=== PATIENT | female | born 1995 | race Caucasian/White ===

== ENCOUNTER 2019-04-07 12:25 | Emergency (ER) | payer OTHER ==
[2019-04-07] MEDS ORDERED: Ondansetron PF 4 MG/2 ML Vial ONE (13:02)
[2019-04-07 13:09] LABS: #Eosinphils 0.1 thou/uL (0.0-0.7); #Lymphocytes 0.9 thou/uL (1.20-3.40); #Monocytes 0.3 thou/uL (0.11-0.59); #Neutrophils 3.6 thou/uL (1.40-6.50); %Basophils 0.4 % (0.0-1.0); %Eosinophils 1.3 % (0.0-10.0); %Lymphocytes 18.7 % (21.0-51.0); %Monocytes 5.6 % (0.0-10.0); Hemoglobin 13.3 g/dL (12.0-16.0); Mean Corpuscular HGB CONC 35.5 g/dL (32.0-36.0); Mean Corpuscular Hemoglobin 31.6 pg (27.0-31.0); Mean Corpuscular Volume 89.2 fL (78.0-98.0); Platelet Count 156 thou/uL (130-400); RBC Distribution Width 11.8 % (11.5-14.5); Red Blood Cell (RBC) Count 4.21 mill/uL (4.20-5.40); White Blood Cell (WBC) Count 4.9 thou/uL (4.8-10.8)
[2019-04-07 13:41] LABS: ALT (SGPT) 13 U/L (8-55); AST (SGOT) 13 U/L (5-34); Albumin 4.1 g/dL (3.5-5.0); Alkaline Phosphatase 39 U/L (40-110); Anion Gap 12 mmol/L (10-20); BUN (Urea Nitrogen) 8 mg/dL (7.0-18.7); Bilirubin, Total 0.5 mg/dL (0.2-1.2); Calc. Creatinine Clearance 0 mL/min (70-130); Calcium 8.8 mg/dL (7.8-10.44); Carbon Dioxide 21 mmol/L (22-29); Chloride 106 mmol/L (98-107); Estimated GFR-MDRD Greater than 90; Globulin 2.8 g/dL (2.4-3.5); Glucose 84 mg/dL (70-105); Potassium 3.7 mmol/L (3.5-5.1); Protein, Total 6.9 g/dL (6.0-8.3); Sodium 135 mmol/L (136-145)
[2019-04-07 14:35] LABS: Bacteria/HPF None Seen HPF (None Seen); Bilirubin Negative (Negative); Blood, Urine 2+ (Negative); Clarity Clear (Clear); Glucose, Urine (Dipstick) Normal (Negative); Leukocyte Negative Leu/uL (Negative); Nitrite Negative (Negative); Protein, Urine (Dipstick) 10 mg/dL (Neg-Trace); RBC/HPF 0-3 HPF (0-3); Squamous Epithelial 0-3 HPF (0-3); Urobilinogen Normal mg/dL (Less than 2); WBC/HPF 0-3 HPF (0-3)
== END 2019-04-07 15:20 | disposition home or self-care (01) ==
LOC: ERS 12:25
DX: O99.89 Other specified diseases and conditions complicating pregnancy, childbirth and the puerperium (principal); R19.7 Diarrhea, unspecified; R10.9 Unspecified abdominal pain; R11.0 Nausea; Z3A.14 14 weeks gestation of pregnancy
CPT/HCPCS: 80053; 81003; 81015; 84443; 85025; 85652; 96361; 96374; J2405

== ENCOUNTER 2019-07-23 16:18 | Day surgery (SDC) | payer OTHER, MEDICAID ==
[2019-07-23 16:54] VITALS: BMI 33.1
[2019-07-23] MEDS ORDERED: hydrALAZINE 20 MG/ML VIAL SLOW IVP PRN (17:33)
[2019-07-23 17:36] VITALS: BP 112/62; TEMP 98.9
--- NOTE | 2019-07-23 17:36 | PDOC.LDHP ---
Labor and Delivery H&P Chief complaint: decreased movement HPI: 23 y/o at 29w2d, patient of Dr. kAers, presents for decreased FM of her di/di twins. Also has noted feeling wet for 3 days but has not had a large gush of fluid. Denies VB, ctx, or other concerns. ROS neg for HEENT, CV, pulm, GI, , neuro, psych, skin, musculoskeletal, or constitutional symptoms other than mentioned above. OB History Details: 1 prior term Past Medical History: None Previous surgical history: none Allergies/Adverse Reactions: Allergies Allergy/AdvReac Type Severity Reaction Status Date / Time No Known Allergies Allergy Unverified 07/23/19 16:44 Social history: none - Physical Exam Vital signs reviewed and normal: yes General: NAD, resting Lungs: nonlabored breathing Abdomen: gravid Extremeties: no edema FHT: category 1 (150s/140s, mod variability, + accels, no decels) [place] contractions every: None - Assessment 23 y/o at 29w2d with reactive NST. No e/o SROM with negative amnisure, pooling and valsalva. - Plan -: D/c home with precautions. Advised to keep all appointments.
[2019-07-23 17:49] LABS: Amnisure Internal Control QC ACCEPTABLE (ACCEPTABLE); Amnisure Test No Membranes Rupture (No Rupture)
== END 2019-07-23 18:40 | disposition home health service (06) ==
LOC: L&D/OP 16:18
PROVIDERS: ATTEND Obstetrics & Gynecology
DX: O36.8130 Decreased fetal movements, third trimester, not applicable or unspecified (principal); O30.043 Twin pregnancy, dichorionic/diamniotic, third trimester; Z3A.29 29 weeks gestation of pregnancy
CPT/HCPCS: 84112; 87480; 87510; 87660; 99284

== ENCOUNTER 2019-09-12 16:58 | Day surgery (SDC) | payer OTHER ==
[2019-09-12 17:34] VITALS: BMI 35.6
[2019-09-12 17:42] VITALS: BP 135/81; TEMP 99.4
[2019-09-12] MEDS ORDERED: hydrALAZINE 20 MG/ML VIAL SLOW IVP PRN (18:00)
[2019-09-12 18:32] LABS: Amnisure Test No Membranes Rupture (No Rupture)
--- NOTE | 2019-09-12 18:32 | PDOC.LDHP ---
Labor and Delivery H&P Chief complaint: loss of fluid HPI: 24yo @ 36.4 with Di-Di twins who is patient of Dr. Akers presents to L& D with complaint of loss of fluid. Pt states that at 1430 today she was walking and felt gush of clear fluid. Since then has been noticing trickling of clear fluid. Around 1600 started to experience what felt like contractions occuring q10 minutes that she describes as diffuse abdominal tightening. Denies vaginal bleeding/discharge, decreased FM, URIAS, vision changes, SOB, CP, cough. Patient is scheduled for on 09/21 due to breech presentation of baby A. Current gestational age (weeks): 36 (4) Due date: 10/06/19 Dating criteria: last menstrual period, first trimester ultrasound Grav: 2 Para: 1 OB History Details: Prev delivery via Current complications: di/di twins, breech (twin A) Abnormal US findings: No (Most recent hadlocks of 15% and 49% reported on 09/08) Past Medical History: None Current medications: pre- vitamins Previous surgical history: none Allergies/Adverse Reactions: Allergies Allergy/AdvReac Type Severity Reaction Status Date / Time No Known Allergies Allergy Unverified 09/12/19 17:32 Social history: none - Physical Exam Vital signs reviewed and normal: yes General: NAD Heart: RRR Lungs: nonlabored breathing Abdomen: gravid FHT: category 1 (Twin A - cat 1 with accels present, baseline near 155) Ixl contractions every: No visible contractions on toco - Vaginal Exam cm dilated: 1 Effacement: 50% Station: -3 - OB Labs Blood type: A RH: positive Antibody Screen: negative HIV: negative RPR: negative HEPSAg: negative 1 hour GCT: positive (failed 1hr but passed all home glucose monitoring WNL) GBS: negative (pt reported per portal results) Rubella: immune - Assessment 24yo di-di twin gestation presenting for concern for LOF. By our exam there is no evidence of SROM - negative amnisure, no pooling or vasalva on exam. Not in labor based on lack of contractions on toco and SVE. Bedside US showed at least 2 pockets of fluid >2cm. - Plan -: DC home with precautions and follow up with provider as currently scheduled. David Bailey DO - PGY2 Addendum - Attending - Attending Attestation Date/Time: 09/15/19 0704 I personally evaluated the patient and discussed the management with Dr. Bailey I agree with the History, Examination, Assessment and Plan documented above with any addition or exceptions noted below.
[2019-09-12 18:33] LABS: Amnisure Internal Control QC ACCEPTABLE (ACCEPTABLE)
== END 2019-09-12 19:06 | disposition home health service (06) ==
LOC: L&D/OP 16:58
PROVIDERS: ATTEND Obstetrics & Gynecology
DX: O99.89 Other specified diseases and conditions complicating pregnancy, childbirth and the puerperium (principal); N89.8 Other specified noninflammatory disorders of vagina; O30.043 Twin pregnancy, dichorionic/diamniotic, third trimester; Z3A.36 36 weeks gestation of pregnancy
CPT/HCPCS: 84112; 87480; 87510; 87660; 99284

== ENCOUNTER 2019-09-19 14:40 | Outpatient (CLI) | payer OTHER ==
[2019-09-20 14:45] LABS: SARS-CoV-2 MS2 Positive; SARS-CoV-2 N Gene Negative; SARS-CoV-2 S Gene Negative; SARS-CoV-2 by NAA Not Detected (NotDetected); SARS-CoV-2 orf1ab Negative
== END 2019-09-19 14:41 | disposition home or self-care (01) ==
LOC: SCSLAB 14:40
PROVIDERS: ATTEND Obstetrics & Gynecology
DX: Z01.812 Encounter for preprocedural laboratory examination (principal); Z11.59 Encounter for screening for other viral diseases
CPT/HCPCS: 87635; U0003

== ENCOUNTER 2019-09-22 06:00 | Inpatient (IN) | payer OTHER ==
[~2019-09-22 06:00] MED LIST: Bicitra 30 ML UDCUP PO SCH; CEFAZOLIN 2 GM in Premix Bag 1 BAG IVPB SCH; Lactated Ringer's 1,000 ML IV SCH; Ondansetron PF 4 MG/2 ML Vial IVP PRN; Promethazine HCl 25 MG/ML VIAL IM PRN; hydrALAZINE 20 MG/ML VIAL SLOW IVP PRN
[2019-09-22 06:09] VITALS: BMI 35.6
[2019-09-22 06:25] LABS: Hemoglobin 10.5 g/dL (12.0-16.0); Mean Corpuscular HGB CONC 33.9 g/dL (32.0-36.0); Mean Corpuscular Hemoglobin 27.5 pg (27.0-31.0); Mean Platelet Volume 9.4 fL (7.4-10.4); Platelet Count 195 thou/uL (130-400); Red Blood Cell (RBC) Count 3.82 mill/uL (4.20-5.40); White Blood Cell (WBC) Count 13.7 thou/uL (4.8-10.8)
[2019-09-22] MEDS ORDERED: Magnesium Sulfate 20 gm/500 ml 0 GM/0 ML BAG ONE (06:49)
[2019-09-22] MEDS ORDERED: Ondansetron PF 4 MG/2 ML Vial ONE ×2 (06:59→08:30)
[2019-09-22] MEDS ORDERED: Oxytocin 10 UNITS/ML VIAL ONE (06:59)
[2019-09-22] MEDS ORDERED: EPHEDRINE 25 MG/5 ML SYRINGE ONE (06:59)
[2019-09-22] MEDS ORDERED: Dexamethasone 4 mg/ml Vial ONE (06:59)
[2019-09-22] MEDS ORDERED: MORPHINE 5 MG/10 ML PF VIAL ONE (06:59)
[2019-09-22] MEDS ORDERED: PHENYLEPHRINE-NS 100 MCG/ML 10 ML SYRINGE ONE (06:59)
[2019-09-22 07:05] LABS: Syphilis Antibody Nonreactive (Nonreactive); Syphilis Antibody Index 0.04 S/CO (<1.00 Non-Reactive)
[2019-09-22 07:06] LABS: HBSAg Index 0.19 S/CO (0-0.99); Hep B Surf Ag Non-Reactive S/CO (NonReactive)
--- NOTE | 2019-09-22 08:14 | PDOC.OPDEL ---
OB Operative/Delivery Note Delivery Dr/Surgeon: Oswald Assist: Adore Pre-Delivery Diagnosis: scheduled section (for di/di twins w breech baby A) Procedure/Post Delivery Dx: primary low transverse CS Weeks gestation: 38 Anesthesia: spinal - Findings A Sex: female B Sex: female - Additional Findings/Plan Placenta delivered: spontaneous findings: low transverse hysterotomy without extension, normal uterus, normal tubes, normal ovaries Estimated blood loss: 500ml Compilations/Other Findings: baby A delivered from complete breech presentation baby B delivered from VTX Post delivery plan: routine recovery
[2019-09-22] MEDS ORDERED: Meperidine HCl/PF 25 MG/ML VIAL SLOW IVP PRN (08:16)
[2019-09-22] MEDS ORDERED: HYDROmorphone 2 MG/ML VIAL SLOW IVP PRN (08:16)
[2019-09-22] MEDS ORDERED: Ondansetron HCl/PF 4 MG/2 ML Vial IVP PRN (08:16)
[2019-09-22] MEDS ORDERED: Promethazine HCl 25 MG/ML VIAL IM PRN ×3 (08:16→12:50)
[2019-09-22] MEDS ORDERED: L&D-Morphine 4 MG/ML VIAL SLOW IVP PRN (08:16)
[2019-09-22] MEDS ORDERED: Ondansetron PF 4 MG/2 ML Vial IVP PRN ×3 (08:16→12:50)
[2019-09-22] MEDS ORDERED: Promethazine HCl 25 MG SUPP PR PRN (08:16)
[2019-09-22] MEDS ORDERED: Naloxone HCl 0.4 mg/ml Vial IVP PRN ×2 (08:16)
[2019-09-22] MEDS ORDERED: Naloxone HCl 0.4 mg/ml Vial IV PRN (08:16)
[2019-09-22] MEDS ORDERED: Ketorolac Tromethamine 30 MG/ML VIAL IVP SCH (08:30)
[2019-09-22] MEDS ORDERED: Communication Order-Pharmacy FS SCH (08:30)
[2019-09-22] MEDS ORDERED: Adacel (T-DAP) 0.5 ML SYRINGE IM ONE (09:12)
[2019-09-22] MEDS ORDERED: hydrALAZINE 20 MG/ML VIAL SLOW IVP PRN ×2 (09:12→12:50)
[2019-09-22] MEDS ORDERED: Bisacodyl 10 MG SUPP PR PRN (09:12)
[2019-09-22] MEDS ORDERED: NS / Oxytocin 40 units/1000ml 1,000 ML ONE (09:19)
[2019-09-22] MEDS ORDERED: Ferrous Sulfate 325 MG TAB PO SCH (09:30)
[2019-09-22] MEDS ORDERED: Docusate Calcium (SURFAK) 240 MG CAP PO SCH (09:30)
[2019-09-22] MEDS ORDERED: Ketorolac Tromethamine 30 MG/ML VIAL ONE (09:32)
--- NOTE | 2019-09-22 10:20 | OP ---
DATE OF PROCEDURE: 09/22/2019 PREOPERATIVE DIAGNOSES: 1. A 24-year-old, G2, P1-0-0-1 at 38 weeks. 2. Dichorionic-diamniotic twin . 3. Presenting infant baby A in breech position. PROCEDURE PERFORMED: Primary low-transverse section. OFFICE WORKFORCE PLANNER: Gayle Avitia PA-C. COMPLICATIONS: None. ESTIMATED BLOOD LOSS: 500 mL. QUANTITATIVE BLOOD LOSS: Pending. OPERATIVE FINDINGS: 1. Low-transverse hysterotomy without extension. 2. Normal-appearing uterus, tubes, and ovaries bilaterally. 3. Fundus firm after delivery of placentas. 4. Surgical site hemostatic. 5. Baby A delivered from complete breech presentation. Apgars and weight pending at the time of dictation, female infant. Baby B delivered from vertex presentation. Apgars and weight pending at the time of dictation, female infant. PROCEDURE IN DETAIL: The patient was taken back to the OR with IV fluids running. Once she was in the OR, spinal anesthesia was obtained. The patient was then placed in dorsal supine position with left lateral tilt. Rodriguez catheter was placed using sterile technique, 2 g of Ancef were administered through her IV. The abdomen was then prepped and draped in normal fashion for section. Surgeons were gowned and gloved and the abdomen was tested, and anesthesia was found to be adequate. A Pfannenstiel skin incision was made with a scalpel. A skin incision was carried down through subcutaneous tissue to the fascia. Once the fascia was reached, it was incised in the midline and extended superolaterally using curved Hartman scissors. Josiah clamps were placed at the superior border of the fascia, which was sharply and bluntly dissected off the rectus abdominis muscles in similar fashion. Josiah clamps were placed at the inferior border of the fascia, which was sharply and bluntly dissected off the rectus muscles inferiorly towards the pubic symphysis. The rectus muscles were in the midline. The peritoneum was entered and stretched. An Gustavo O retractor was placed into the peritoneal cavity for retraction, visualization, and protection of the wound. The bladder flap was created using Metzenbaum scissors and a bladder flap was dissected away from the planned hysterotomy site. A low-transverse hysterotomy was made with a scalpel. Hysterotomy was bluntly entered and clear fluid was noted. Baby A was noted to be in complete breech presentation. Baby A was delivered with gentle pressure with spontaneous delivery of the breech, lower extremities, upper extremities, and head with gentle rotation. After baby A was delivered, the cord was doubly clamped and cut. The was handed off to special care nurses in attendance. Cord blood was collected. The clamp was placed on the cord segment of baby A and amniotomy was performed. Baby B was then delivered through the hysterotomy without difficulty from vertex presentation. Immediate cry was noted. The nose and mouth were suctioned. The cord was doubly clamped and cut. The infant was handed off to special care nurse in attendance. Plastic cord clamp was placed on the postanal cord segment of baby B. The placentas were then delivered. The uterus was exteriorized, massaged to firm and cleared of clot and debris. The uterus was returned to the abdominal cavity. The hysterotomy was inspected and no extensions were noted. The hysterotomy was closed with Monocryl suture in a running locked fashion. After the hysterotomy was closed, the uterus was palpated and noted to be firm. The hysterotomy was inspected and no bleeding was noted. The hysterotomy and paracolic gutters were irrigated and suctioned dry. The hysterotomy was inspected again with no bleeding noted. The Gustavo O retractor was removed from the abdominal cavity. The rectus muscle and fascia were inspected and no areas of bleeding were noted. The rectus fascia was then reapproximated from corner to corner with PDS suture in a running fashion. The subcutaneous tissue was then irrigated and dried. Subcutaneous tissue was reapproximated with chromic suture. The skin was closed with 4-0 Monocryl and dressed with Dermabond dressing. The uterus was noted to be firm at the end of the case. The patient tolerated the procedure well. There were no complications. The counts were correct x2. Job ID: [id number]
[2019-09-22] MEDS: diphenhydrAMINE 50 MG/ML VIAL IVP PRN ×2 (12:31→20:23)
[2019-09-22 14:24] LABS: Hemoglobin 9.2 g/dL (12.0-16.0); Mean Corpuscular HGB CONC 32.6 g/dL (32.0-36.0); Mean Corpuscular Hemoglobin 26.2 pg (27.0-31.0); Mean Corpuscular Volume 80.2 fL (78.0-98.0); Mean Platelet Volume 9.4 fL (7.4-10.4); Platelet Count 180 thou/uL (130-400); RBC Distribution Width 14.6 % (11.5-14.5); Red Blood Cell (RBC) Count 3.51 mill/uL (4.20-5.40); White Blood Cell (WBC) Count 13.8 thou/uL (4.8-10.8)
[2019-09-22 15:05] LABS: Syphilis Antibody Nonreactive (Nonreactive); Syphilis Antibody Index 0.04 S/CO (<1.00 Non-Reactive)
[2019-09-22 15:06] LABS: HBSAg Index 0.16 S/CO (0-0.99); Hep B Surf Ag Non-Reactive S/CO (NonReactive)
[2019-09-22] MEDS: Ketorolac Tromethamine 30 MG/ML VIAL IVP PRN ×2 (15:49→22:21)
[2019-09-22] MEDS: Ferrous Sulfate 325 MG TAB PO SCH (18:22)
[2019-09-22] MEDS: Docusate Calcium (SURFAK) 240 MG CAP PO SCH (22:27)
[2019-09-23] MEDS: HYDROcodone/Acetaminophen 5/325 mg Tablet PO PRN ×4 (03:51→20:34)
[2019-09-23] MEDS: Simethicone Chewable 80 MG TAB PO PRN ×4 (03:52→22:10)
[2019-09-23 06:12] LABS: Hemoglobin 8.4 g/dL (12.0-16.0); Mean Corpuscular HGB CONC 32.5 g/dL (32.0-36.0); Mean Corpuscular Hemoglobin 26.8 pg (27.0-31.0); Mean Corpuscular Volume 82.5 fL (78.0-98.0); Mean Platelet Volume 9.2 fL (7.4-10.4); Platelet Count 155 thou/uL (130-400); RBC Distribution Width 14.8 % (11.5-14.5); Red Blood Cell (RBC) Count 3.13 mill/uL (4.20-5.40); White Blood Cell (WBC) Count 11.5 thou/uL (4.8-10.8)
[2019-09-23] MEDS: Ferrous Sulfate 325 MG TAB PO SCH ×2 (08:51→17:14)
[2019-09-23] MEDS: Docusate Calcium (SURFAK) 240 MG CAP PO SCH ×2 (08:54→22:09)
--- NOTE | 2019-09-23 10:37 | PDOC.PP ---
Post Progress Note Post Day #: 1 Subjective: doing well, nursing both babies, pain is controlled w meds PO intake tolerated: yes Flatus: yes Ambulation: yes Vital Signs (12 hours) Temp Pulse Resp BP Pulse Ox 09/23/19 07:47 98.1 F 89 20 105/71 98 09/23/19 03:52 98.1 F 85 18 115/66 09/22/19 23:25 98.2 F 82 18 107/56 L 97 Weight Weight 208 lb - Physical Examination General: NAD Respiratory: non-labored breathing Abdominal: no distention Fundus firm & at: below umb Skin: CS incision dry & intact Neurological: no gross focal deficits Psychiatric: A&Ox3, normal affect Result Diagrams: 09/23/19 05:45 Additional Labs: Post Labs Blood Type A POSITIVE 09/22/19 06:32 Hep Bs Antigen Non-Reactive S/CO (NonReactive) 09/22/19 13:54 (1) 38 weeks gestation of Code(s): Z3A.38 - 38 WEEKS GESTATION OF Status: Acute (2) delivery delivered Code(s): O82 - ENCOUNTER FOR DELIVERY WITHOUT INDICATION Status: Acute (3) Dichorionic diamniotic twin gestation Code(s): O30.049 - TWIN , DICHORIONIC/DIAMNIOTIC, UNSP TRIMESTER Status: Acute (4) Anemia Code(s): D64.9 - ANEMIA, UNSPECIFIED Status: Acute Qualifiers: Anemia type: other cause - Assessment/Plan POD 1 doing well sp 1CS for twins w anemia of exacerbated by surgery and the normal post process, continue iron.
[2019-09-23] MEDS: Ibuprofen 800 MG TAB PO SCH ×2 (11:55→22:09)
[2019-09-24] MEDS: Simethicone Chewable 80 MG TAB PO PRN ×2 (02:57→19:50)
[2019-09-24] MEDS: HYDROcodone/Acetaminophen 5/325 mg Tablet PO PRN ×5 (02:57→19:49)
[2019-09-24] MEDS: Ibuprofen 800 MG TAB PO SCH ×3 (05:15→22:23)
[2019-09-24] MEDS: Docusate Calcium (SURFAK) 240 MG CAP PO SCH ×2 (08:02→22:23)
[2019-09-24] MEDS: Ferrous Sulfate 325 MG TAB PO SCH ×2 (08:02→17:40)
--- NOTE | 2019-09-24 16:05 | PDOC.PP ---
Post Progress Note Post Day #: 2 Subjective: doing well, planning to stay unless something changes and she wants to go home, breast feeding, pain is controlled w meds PO intake tolerated: yes Flatus: yes Ambulation: yes Vital Signs (12 hours) Temp Pulse Resp BP Pulse Ox 09/24/19 08:23 98.2 F 88 20 130/78 98 09/24/19 05:12 98.2 F 76 16 123/80 98 Weight Weight 208 lb - Physical Examination General: NAD Respiratory: non-labored breathing Abdominal: no distention Skin: CS incision dry & intact Psychiatric: A&Ox3, normal affect Result Diagrams: 09/23/19 05:45 Additional Labs: Post Labs Blood Type A POSITIVE 09/22/19 06:32 Hep Bs Antigen Non-Reactive S/CO (NonReactive) 09/22/19 13:54 (1) 38 weeks gestation of Code(s): Z3A.38 - 38 WEEKS GESTATION OF Status: Acute (2) delivery delivered Code(s): O82 - ENCOUNTER FOR DELIVERY WITHOUT INDICATION Status: Acute (3) Dichorionic diamniotic twin gestation Code(s): O30.049 - TWIN , DICHORIONIC/DIAMNIOTIC, UNSP TRIMESTER Status: Acute (4) Anemia Code(s): D64.9 - ANEMIA, UNSPECIFIED Status: Acute Qualifiers: Anemia type: other cause - Assessment/Plan POD2 sp 1CS for twins w presenting breech. Doing well, asx anemia, plan for iron w home meds. Plan for DC tomorrow.
[2019-09-25] MEDS: HYDROcodone/Acetaminophen 5/325 mg Tablet PO PRN ×2 (01:21→09:43)
[2019-09-25] MEDS: Simethicone Chewable 80 MG TAB PO PRN (01:23)
[2019-09-25] MEDS: Ibuprofen 800 MG TAB PO SCH (05:03)
--- NOTE | 2019-09-25 07:53 | PDOC.PP ---
Post Progress Note Post Day #: 3 Subjective: doing well, ready for DC PO intake tolerated: yes Flatus: yes Ambulation: yes Weight Weight 208 lb - Physical Examination General: NAD Respiratory: non-labored breathing Abdominal: no distention Skin: CS incision dry & intact Psychiatric: A&Ox3, normal affect Result Diagrams: 09/23/19 05:45 Additional Labs: Post Labs Blood Type A POSITIVE 09/22/19 06:32 Hep Bs Antigen Non-Reactive S/CO (NonReactive) 09/22/19 13:54 (1) 38 weeks gestation of Code(s): Z3A.38 - 38 WEEKS GESTATION OF Status: Acute (2) delivery delivered Code(s): O82 - ENCOUNTER FOR DELIVERY WITHOUT INDICATION Status: Acute (3) Dichorionic diamniotic twin gestation Code(s): O30.049 - TWIN , DICHORIONIC/DIAMNIOTIC, UNSP TRIMESTER Status: Acute (4) Anemia Code(s): D64.9 - ANEMIA, UNSPECIFIED Status: Acute Qualifiers: Anemia type: other cause - Assessment/Plan POD3 doing well, iron for anemia assoc w and CD. Home today.
[2019-09-25] MEDS: Docusate Calcium (SURFAK) 240 MG CAP PO SCH (08:07)
[2019-09-25] MEDS: Ferrous Sulfate 325 MG TAB PO SCH (08:07)
[2019-09-25 08:08] VITALS: BP 131/76; TEMP 97.9
== END 2019-09-25 12:10 | disposition home or self-care (01) | DRG 788 ==
LOC: L&D 06:00 → 3SW 10:55
PROVIDERS: ADMIT Obstetrics & Gynecology; ATTEND Obstetrics & Gynecology
PROC: 10D00Z1 Extraction of Products of Conception, Low, Open Approach (ICD-10-PCS; principal; 2019-09-22)
DX: O30.043 Twin pregnancy, dichorionic/diamniotic, third trimester (principal); O32.1XX1 Maternal care for breech presentation, fetus 1; O99.02 Anemia complicating childbirth; D64.89 Other specified anemias; Z3A.38 38 weeks gestation of pregnancy; Z37.2 Twins, both liveborn
CPT/HCPCS: 36415; 51702; 85027; 86780; 86850; 86900; 86901; 87340; 88307; J0690; J1100; J1200; J1885; J2274; J2405; J2590; J3475